=== PATIENT | female | born 1995 | race Caucasian/White ===

== ENCOUNTER 2016-08-24 03:54 | Emergency (ER) | payer OTHER ==
[~2016-08-24] VITALS: Ht 172.7 cm; Wt 69.0 kg
[2016-08-24 04:01] VITALS: TEMP 37.2; Ht 172.7 cm; Wt 69.0 kg
[2016-08-24] MEDS ORDERED: SPR28 PO (04:59)
[2016-08-24] MEDS ORDERED: MoRPHine SULFATE 2 MG/ML CARP IV STA ×2 (05:15→06:02)
[2016-08-24] MEDS ORDERED: ONDANSETRON INJ 2 MG/ML 2 ML VIAL IV STA (05:15)
[2016-08-24] MEDS ORDERED: LIDOCAINE HCL 1% 20 ML VIAL ONE (06:19)
[2016-08-24] MEDS ORDERED: HYDR-5688 PO (07:24)
--- NOTE | 2016-08-24 08:00 | DIAGNOSTIC IMAGING REPORT ---
RIGHT WRIST MIN 3 VIEWS ROUTINE CLINICAL HISTORY: Post reduction. COMPARISON: Right wrist radiograph August 24, 2016. FINDINGS: Fine detail is diminished due to overlying cast. However, alignment of the distal right radial fracture has significantly improved post reduction. Alignment of the ulnar styloid fracture has also improved. IMPRESSION: Interval improvement in alignment of the distal right radial and ulnar fractures status post reduction. Electronically signed by: Raman Corrales M.D. 08/24/2016 7:59 AM Dictated Date/Time: 08/24/2016 7:57 AM
--- NOTE | 2016-08-24 08:01 | DIAGNOSTIC IMAGING REPORT ---
RIGHT WRIST MIN 3 VIEWS ROUTINE CLINICAL HISTORY: Right wrist injury following fall. COMPARISON: None FINDINGS: There is a transverse displaced, angulated and comminuted distal right radial fracture with dorsal tilt of the distal component. There is also displaced fracture of the ulnar styloid. Carpal bones are suboptimally assessed on this exam but appear intact. Soft tissue swelling is noted. IMPRESSION: 1. Comminuted, displaced distal right radial fracture with dorsal tilt of the distal component consistent with a Colles' fracture. 2. Displaced, comminuted ulnar styloid fracture. Electronically signed by: Raman Corrales M.D. 08/24/2016 8:00 AM Dictated Date/Time: 08/24/2016 7:59 AM
[2016-08-24 08:21] VITALS: BP 122/86; PULSE 107; O2SAT 97
--- NOTE | 2016-08-24 10:02 | ORTHOPEDIC CONSULTATION ---
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 She had an incident when some larger boys fell against her and she fell over and landed on her right wrist and had immediate pain and deformity. She was brought to the Emergency Room. She had radiographs demonstrate a Colles fracture. PAST MEDICAL HISTORY: She has been healthy without medical problems. MEDICATIONS: She is on no medications. ALLERGIES: She has no allergies. SOCIAL HISTORY: She is a college student from [employer]. PHYSICAL EXAMINATION: Demonstrates she is a pleasant female who is in moderate pain with regard to her wrist. She clearly has a right wrist deformity with dorsiflexion of the wrist and radial deviation consistent with a displaced Colles fracture. This is a closed injury. She has a little bit of numbness at the tip of her index finger, otherwise, she had feeling and good circulation. She has moderate swelling of the wrist. Her radiographs demonstrate that she has a transverse fracture to the metaphysis of the radius that is extraarticular Colles fracture with displacement of at least 80% and shortening and apex volar angulation with a small ulnar styloid fracture. ASSESSMENT: A displaced right wrist Colles fracture, extra-articular. PLAN: Her wrist was sterilely prepped with Betadine. I used up ethyl chloride and 1% lidocaine hematoma block and ulnar wrist block at the ulnar styloid area. She had excellent analgesia from that. We did a closed reduction without difficulty by manipulating the fracture to slightly reproduce the deformity, put longitudinal traction and ulnar deviation and palmar flexion on the wrist and then it was held in place with anterior and posterior plaster, well molded splints and a sugar tong splint about the elbow held in place until the plaster hardened. Her post-reduction x-rays are pending at this time. She has an orthopedic surgeon at home and she will be going home this weekend and they will get in touch with them for further options. I did discuss with her that future options could include volar plating if there is any displacement of the fracture or if it is perfectly anatomically aligned, then can continue with the splint and eventually be converted to a cast, but she will require weekly x-rays to assess for any potential displacement. If she chooses further treatment or needs further conservative management we will see her back here in [place] office while she is here at school at [facility].
--- NOTE | 2016-08-25 04:31 | EMERGENCY ROOM VISIT NOTE ---
ED Visit Note First contact with patient: 04:10 CHIEF COMPLAINT: Wrist injury HISTORY OF PRESENT ILLNESS: This 20-year-old female patient presents to the emergency department complaining of pain in the right wrist after falling 1 hour ago. The patient was standing near several college-age boys who were wrestling. One of them was accidentally knocked into the patient, who fell forward, and tried to catch herself in the fall. The patient states that the gentleman landed on top of her, causing her injury. The patient is not to move their wrist. The patient states the pain is dull and 5/10. No laceration, no weakness. No numbness or tingling. The patient denies any other injury. The patient is able to move their fingers and elbow without difficulty. The patient has not had a previous fracture to this wrist. The patient has taken nothing for the pain. REVIEW OF SYSTEMS: A 6 system review of systems was performed with positives and pertinent negatives in the HPI. ALLERGIES: No known allergies MEDICATIONS: No chronic medication PMH: Otherwise healthy SOCIAL HISTORY: [employer] student who lives locally PHYSICAL EXAM: Vital Signs: Reviewed Nurse's notes, vital signs stable. GENERAL : White female, in no acute distress, but appears to be in pain, well-developed , well-neurished. NEURO: Alert and oriented to person place and time. Normal sensation to light and sharp touch. MUSCULOSKELETAL: There is obvious Colles' type deformity of the right wrist. There is tenderness and edema over the distal radius and ulna. There is no appreciable snuff box tenderness. Range of motion is significantly limited. There is no tenderness of the elbow, hand or fingers. 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 Radial pulse 2+. SKIN: Normal and intact. The hand is warm and well perfused with capillary refill less than 2 seconds. RIGHT WRIST MIN 3 VIEWS ROUTINE CLINICAL HISTORY: Right wrist injury following fall. COMPARISON: None FINDINGS: There is a transverse displaced, angulated and comminuted distal right radial fracture with dorsal tilt of the distal component. There is also displaced fracture of the ulnar styloid. Carpal bones are suboptimally assessed on this exam but appear intact. Soft tissue swelling is noted. IMPRESSION: 1. Comminuted, displaced distal right radial fracture with dorsal tilt of the distal component consistent with a Colles' fracture. 2. Displaced, comminuted ulnar styloid fracture. RIGHT WRIST MIN 3 VIEWS ROUTINE CLINICAL HISTORY: Post reduction. COMPARISON: Right wrist radiograph August 24, 2016. FINDINGS: Fine detail is diminished due to overlying cast. However, alignment of the distal right radial fracture has significantly improved post reduction. Alignment of the ulnar styloid fracture has also improved. IMPRESSION: Interval improvement in alignment of the distal right radial and ulnar fractures status post reduction. EMERGENCY DEPARTMENT COURSE: Physical exam and history were performed. Nursing notes and EMR were reviewed. The patient appears to have suffered a fall with injury to her right wrist. She does have obvious deformity on examination. Her neurovascular status is intact. X-rays were obtained and do confirm a Colles' fracture. IV access was established and the patient was given IV morphine and IV Zofran for her symptoms. I discussed the case with the on-call orthopedist, Dr. Desir, who did evaluate the patient here in the department. Dr. Desir performed a hematoma block with reduction and splinting. Please see his dictation for specifics regarding this procedure. The patient did tolerate this very well and postreduction x-rays showed improvement of her alignment. The patient is planning to go home to [facility] next week for orthopedic follow-up. She was provided copies of her x-ray films and an arm sling. The patient will be given a course of Vicodin for pain control. She was certainly invited back to the ER with any new, worsening, or concerning symptoms. She voiced understanding and rated her discomfort a 1/10 at the time of departure. Current/Historical Medications Scheduled Ethinyl Estrad/Norgestimate (Sprintec 28), 1 TAB PO DAILY Scheduled PRN Hydrocodone/Acetaminophen 5MG/325MG ([place] 5MG/325MG), 1-2 TABLET PO Q6 PRN for Pain Allergies Coded Allergies: No Known Allergies (Unverified , 08/24/16) Vital Signs Date Time Temp Pulse Resp B/P Pulse Ox O2 Delivery O2 Flow Rate FiO2 08/24/16 08:21 107 18 122/86 97 Room Air 08/24/16 06:50 88 18 140/82 98 Room Air 08/24/16 05:47 100 18 144/93 98 Room Air 08/24/16 04:01 37.2 107 18 167/107 97 Room Air Medications Administered Medications (Trade) Dose Ordered Sig/Shoaib Route Start Time Stop Time Status Last Admin Dose Admin Morphine Sulfate (MoRPHine SULFATE INJ) 2 mg NOW STAT IV 08/24/16 05:15 08/24/16 05:16 DC 08/24/16 05:26 2 MG Ondansetron HCl (Zofran Inj) 4 mg NOW STAT IV 08/24/16 05:15 08/24/16 05:16 DC 08/24/16 05:26 4 MG Morphine Sulfate (MoRPHine SULFATE INJ) 2 mg NOW STAT IV 08/24/16 06:02 08/24/16 06:03 DC 08/24/16 06:35 2 MG Departure Information Impression Primary Impression: Right wrist fracture Dispostion Home / Self-Care Condition FAIR Prescriptions Hydrocodone/Acetaminophen 5MG/325MG ([place] 5MG/325MG) Tab 1-2 TABLET PO Q6 Y for Pain, #24 TAB For Initial Treatment Prov: Matty Wilhelm PA-C 08/24/16 Referrals Lance Desir M.D. Forms HOME CARE DOCUMENTATION FORM, IMPORTANT VISIT INFORMATION Patient Instructions My [facility], ED Fx Wrist General, ED Compartment Syndrome At Risk For Additional Instructions You were seen and evaluated today on an emergency basis only. This is not a substitute for, or an effort to provide, complete comprehensive medical care. It is not possible to recognize and treat all injuries or illnesses in a single emergency department visit. For this reason it is recommended that you followup with Orthopedics back home in the next week for a recheck. We recommend that you call your orthopedist Thursday to make your appointment. Let him know you were seen in the emergency department to help facilitate care. Take your x-ray copies with you for this appointment. For baseline pain relief you may alternate ibuprofen and acetaminophen every 4 hours for pain control. Take 600 mg ibuprofen (Advil) and then 4 hours later take 1000 mg acetaminophen (Tylenol). Do not take more than 3000 mg acetaminophen in a single day. [place] (hydrocodone/acetaminophen) 5/325 mg ONE or TWO pills by mouth every 6 hours as needed for worsening breakthrough pain. Do not drink or drive on [place]. This medication will likely make you tired. Do not take [place] and Tylenol at the same time as both contain acetaminophen. [place] may cause constipation. You may wish to take an [id number] stool softener like Colace if this occurs. Wear your arm sling for comfort. Do not get your splint wet You are welcome to return to the emergency department anytime with new, worsening, or concerning symptoms.
--- NOTE | 2016-08-25 16:21 | Pharmacy Progress Note ---
ED Pharmacist Progress Note Date of Service: Aug 25, 2016. Received call from [facility] requesting verification of the quantity of [place] tabs. Verified that it was #24 tabs.
== END 2016-08-24 08:25 | disposition home or self-care (01) ==
LOC: C.EDB 03:56
DX: S52.531A Colles' fracture of right radius, initial encounter for closed fracture (principal); W03.XXXA Other fall on same level due to collision with another person, initial encounter; Z79.3 Long term (current) use of hormonal contraceptives